=== PATIENT | male | born 2000 | race African-American/Black ===

== ENCOUNTER 2022-07-20 18:54 | Emergency (ER) | payer OTHER ==
[~2022-07-20] VITALS: Ht 187.9 cm; Wt 74.8 kg
--- NOTE | 2022-07-20 19:31 | ED EENT ---
History of Present Illness General Chief Complaint: Oral/Throat Problems Stated Complaint: SORE THROAT Nursing Triage Note: PATIENT STATES THAT HE IS HERE FROM [place] FOR WORK AND YESTERDAY STARTING EXPERIENCING A "SCRATCHY" THROAT AND "NASAL DRIP". HE HAS NOT TAKEN ANY MEDICATIONS OR BEEN SEEN BY A HEALTH CARE PROVIDER. HE ALSO DENIES FEVER, CHEST PAIN AND ANY OTHER SYMPTOMS. Source: patient Exam Limitations: no limitations History of Present Illness Date Seen by Provider: Jul 20, 2022 Time Seen by Provider: 19:31 Allergies and Home Medications Allergies Coded Allergies: No Known Drug Allergies (Unverified , 07/20/22) Physical Exam Vital Signs Vital Signs - First Documented 07/20/22 19:13 Temp 36.9 Pulse 73 Resp 18 B/P (MAP) 126/80 (95) Pulse Ox 98 O2 Delivery Room Air Height, Weight, BMI Height: '" Weight: lbs. oz. kg; 21.00 BMI Method: Progress/Results/Core Measures Results/Orders Lab Results Laboratory Tests Test 07/20/22 19:20 Range/Units Influenza Type A (RT-PCR) Not Detected Not Detecte Influenza Type B (RT-PCR) Not Detected Not Detecte SARS-CoV-2 RNA (RT-PCR) Not Detected Not Detecte Group A Streptococcus Screen NEGATIVE NEGATIVE My Orders Orders - BRITT SAAB APRN Rapid Strep A Screen (07/20/22 19:16) Covid 19 Inhouse Test (07/20/22 19:16) Influenza A And B By Pcr (07/20/22 19:16) Vital Signs/I&O 07/20/22 19:13 Temp 36.9 Pulse 73 Resp 18 B/P (MAP) 126/80 (95) Pulse Ox 98 O2 Delivery Room Air Blood Pressure Mean: 95 Departure Impression Primary Impression: Pharyngitis Disposition: 01 HOME, SELF-CARE Condition: Improved Departure-Patient Inst. Decision time for Depature: 20:14 Referrals: NO,LOCAL PHYSICIAN (PCP/Family) Primary Care Physician Patient Instructions: Strep Throat (DC) Add. Discharge Instructions: Plan: 1. May take Benadryl 25mg by mouth at bedtime. 2. May take over the counter histamine (Claritin, Laurie, Zyrtec) daily. 3. Follow up with your doctor for any new, concerning, or worsening symptoms. All discharge instructions reviewed with patient and/or family. Voiced understanding. BRITT SAAB SWATCH CHECKER Jul 20, 2022 19:31
[2022-07-20] MEDS ORDERED: LORATADINE (CLARITIN) 10 MG TAB PO ONE (20:15)
[2022-07-20 20:28] VITALS: BP 132/76
== END 2022-07-20 20:26 | disposition home or self-care (01) ==
LOC: ER 18:57
DX: J02.9 Acute pharyngitis, unspecified (principal); Z20.822 Contact with and (suspected) exposure to COVID-19; Z28.310 Unvaccinated for COVID-19
CPT/HCPCS: 87430; 87636; 99283